=== PATIENT | male | born 1990 | race Caucasian/White ===

== ENCOUNTER 2016-07-16 10:41 | Inpatient (IN) | payer BC, OTHER ==
[~2016-07-16] VITALS: Ht 167.6 cm; Wt 56.7 kg
[2016-07-16] MEDS ORDERED: CLONIDINE HCL 0.1 MG TABLET PO PRN (22:15)
[2016-07-16] MEDS ORDERED: MAGNESIUM HYDROXIDE 30 ML LIQUID UDC PO PRN (22:15)
[2016-07-16] MEDS ORDERED: MIRALAX 17 GM POWD.PACK PO PRN (22:15)
[2016-07-16] MEDS ORDERED: LOPERAMIDE HCL 2 MG CAPSULE PO PRN ×2 (22:15)
[2016-07-16] MEDS ORDERED: ONDANSETRON 4 MG/2 ML VIAL IM PRN (22:15)
[2016-07-16] MEDS ORDERED: HYDROXYZINE PAMOATE 25 MG CAPSULE PO PRN (22:15)
[2016-07-16] MEDS ORDERED: MAG HYDROX/AL HYDROX/SIMETH 30 ML LIQUID UDC PO PRN (22:15)
[2016-07-16] MEDS ORDERED: BUPRENORPHINE HCL 2 MG TAB.SUBL SL PRN (22:15)
[2016-07-16] MEDS ORDERED: ACETAMINOPHEN 325 MG TABLET PO PRN (22:15)
[2016-07-16] MEDS ORDERED: ONDANSETRON ODT 4 MG TAB.RAPDIS SL PRN (22:15)
[2016-07-16] MEDS ORDERED: diphenhydrAMINE 50 MG CAPSULE PO PRN (22:15)
[2016-07-16 22:37] LABS: *AMPHETAMINE, URINE NEGATIVE (NEGATIVE); *BARBITURATE, URINE NEGATIVE (NEGATIVE); *CANNABINOID, URINE POSITIVE (NEGATIVE); *COCCAINE, URINE NEGATIVE (NEGATIVE); *OPIATE, URINE NEGATIVE (NEGATIVE); *PHENCYCLIDINE SCREEN,URINE NEGATIVE (NEGATIVE)
[2016-07-16] MEDS: DICYCLOMINE HCL 20 MG TABLET PO PRN (22:53)
--- NOTE | 2016-07-16 22:53 | NUR ---
PRN Subutex and PRN Bentyl: Pt complains of stomach cramps, diaphoresis, anxiety, myalgia, restlessness, 5/10 generalized muscle pain. Pupils 5mm. COWS is 16. Administered PRN Subutex 4mg for COWS 16 and PRN Bentyl for stomach cramps as ordered. Will continue to monitor.
[2016-07-16] MEDS ORDERED: BUPRENORPHINE HCL 2 MG TAB.SUBL SL ONE (22:58)
[2016-07-16] MEDS ORDERED: DICYCLOMINE HCL 20 MG TABLET ONE (22:58)
--- NOTE | 2016-07-16 23:00 | NUR ---
Admission Note: New admission is a 25 yo male on the [facility] floor at 22:45 on 07/16/16 accompanied by male METAL SASH SETTER. Skin check completed in presence of METAL SASH SETTER reveals scattered excoriations r/t methamphetamine-induced skin picking on bilateral arms and chest. VS upon admission: 112/76, 70, 97.8, 16, 100% Spo2 on RA. Pt reports current withdrawal symptoms: stomach cramps, restlessness, myalgia, diaphoresis, muscle aches, anxiety. PERRLA at 5mm. COWS is 16. Reported height is 5'6" and weight is 125 lbs. Pt reports allergy to cefaclor. Pt denies having a PCP. Pt reports the following substance use: 1) Opana (IV) 150-200 mg/day for 10 years at current rate, 14 years total. Last use 100mg 12 hours prior to admission. 2) Methamphetamine (IV) 2 gm/day for 1 years at current rate, 12 years total. Last use 1gm on 07/13/16 3) Xanax 2mg PO < weekly; use only when Opana not available. Unknown last use or amount. Pt reports that he has never been in detox or treatment before and denies any significant periods of sobriety. Pt reports that he smokes 20 cigarettes/day and has been smoking for 9 years. Written smoking cessation education provided. Pt verbalizes understanding. Pt reports medical hx of Hep-C + diagnosis in 2013, anxiety, surgical repair of right elbow. Pt denies sz hx. Pt denies taking any home medications. Pt is ambulatory with steady gait. Pt is noted to be anxious and guarded, with poor eye contact, unkempt appearance, and fasiculations. Lungs are CTA throughout, respirations are even and unlabored.; pt reports productive cough with clear mucus. Heart sounds regular. Bowel sounds active in all quadrants; pt reports last BM on 07/16/16. Abdomen is soft, non-distended. Pt denies current SI/HI or hx of SI/HI. Pt reports that currently lives with his parents, has four children, and that he is here to get sober for his family.
--- NOTE | 2016-07-16 23:55 | NUR ---
Reassessment: Pt reports relief of opiate withdrawal symptoms with PRN Subutex. COWS decreased from 16 to 5 one hour after administration. Pt denies stomach cramps at this time. PRN Bentyl effective. Will continue to monitor.
[2016-07-17] VITALS: BP 114/71
[2016-07-17 00:12] LABS: BASOPHILS # (AUTO) 0.1 K/uL (0.0-0.2); BASOPHILS % (AUTO) 1.6 % (0.0-2.0); EOSINOPHILS # (AUTO) 0.2 K/uL (0.0-0.7); HEMATOCRIT 36.9 % (40.0-50.0); HEMOGLOBIN 12.4 g/dL (14.0-18.0); LYMPHOCYTES # (AUTO) 3.8 K/uL (0.8-4.8); LYMPHOCYTES % (AUTO) 51.8 % (20.5-51.5); MEAN CORPUSCULAR HEMOGLOBIN 30.4 uug (27.0-31.0); MEAN CORPUSCULAR HGB CONC 34 g/dL (32.0-37.0); MEAN CORPUSCULAR VOLUME 90.5 fL (82.0-92.0); MONOCYTES # (AUTO) 0.7 K/uL (0.1-1.30); MONOCYTES % (AUTO) 9.9 % (0.0-11.0); NEUTROPHILS # (AUTO) 2.5 K/uL (1.8-8.9); NEUTROPHILS % (AUTO) 33.7 % (38.5-71.5); PLATELET COUNT (AUTO) 293 K/uL (150-450); RED BLOOD CELL COUNT(AUTO) 4.08 MIL/uL (4.70-6.10); RED CELL DISTRIBUTION WIDTH 13.8 % (11.5-14.5); WHITE BLOOD COUNT (AUTO) 7.3 K/uL (4.0-11.2)
[2016-07-17 00:24] LABS: ETHANOL < 3 MG/DL (0-0)
[2016-07-17 00:27] LABS: ALANINE AMINOTRANSFERASE 26 U/L (16-63); ALKALINE PHOSPHATASE 116 U/L (50-136); ASPARTATE AMINOTRANSFERASE 18 U/L (15-37); BILIRUBIN,TOTAL 0.2 mg/dL (0.2-1.0); CALCIUM 8.7 mg/dL (8.5-10.1); CARBON DIOXIDE 29 mmol/L (21-32); CHLORIDE 103 mmol/L (98-107); CREATININE 0.8 mg/dL (0.6-1.3); GFR 119 mL/min (>60); GLUCOSE 112 mg/dL (74-106); MAGNESIUM 1.8 mg/dL (1.8-2.4); SODIUM SERUM 137 mmol/L (136-145); THYROID STIMULATING HORMONE 0.405 mIU/mL (0.358-3.740); TOTAL PROTEIN, SERUM 6.7 g/dL (6.4-8.2); UREA NITROGEN, BLOOD 12 mg/dL (7-18)
[2016-07-17 00:32] LABS: HIV-1 p24 ANTIGEN NON REACTIVE (NONREACTIVE); HIV-1/2 ANTIBODY NON REACTIVE (NONREACTIVE)
--- NOTE | 2016-07-17 01:35 | NUR ---
Reassessment: Pt is in bed with eyes closed. Respirations are even and unlabored. No s/s of acute distress noted. PRN Maalox effective AEB pt's ability to rest. Will continue to monitor. Addendum: 07/18/16 at 0339 by MORALES CHRIS RN Disregard note. Wrong date entered.
[2016-07-17 04:00] VITALS: BP 105/62
--- NOTE | 2016-07-17 06:59 | NUR ---
End of Shift Note: Pt is a 25 yo male admitted last night for medically-supervised withdrawal from opiates. Pt reports using 150-200mg IV Opana daily for 10 years and 2gm IV methamphetamine daily for 1 year. Pt also reports intermittent use of Xanax to manage withdrawal when Opana is not available. Upon admission, pts COWS score was 16. PRN Subutex 4mg was administered, along with PRN Bentyl for stomach cramps, and COWS decreased to 5. Last COWS was 3 at 04:00. Pt reports PMHx of Hep-C +, anxiety, surgical repair of right elbow. Pt is a full code, on a regular diet, and reports allergy to cefaclor. V/S stable throughout shift. Total fluid intake this shift: 979 ml; output: urine x 1 and BM x 0. Pt currently in bed and slept 5 hours this shift. Endorsed f/u of wound photos and explanation of UDS (+) result of cannabinoids. Pt endorsed to day shift nurse.
--- NOTE | 2016-07-17 07:58 | NUR ---
BEGINNING OF SHIFT Patient endorsement report received from slot shift supervisor nurse, all pertinent information discussed. Patient is a 25 year old male, full code, with allergies to: cefaclor, regular diet. Patient with admitting Dx: opiate/methamphetamine dependence. Patient with past medical history of: hep c +, right elbow surgical repair 2006, and anxiety. Substance use history of: Opana iv 150-200mg daily for 10 years, methamphetamine 2 gram daily for one year, Xanax 2mg less weekly use, only when Opana not available. As per slot shift supervisor patient received PRN: Subutex and Bentyl as ordered and effective as per slot shift supervisor. Patient with last cow score of: 3. Patient received awake, alert and oriented x4, educated patient regarding plan of care for the day and medication regimen with good verbal understanding. safety measures in place, call light kept with in reach, will continue to monitor.
[2016-07-17 08:00] VITALS: BP 102/66
[2016-07-17] MEDS ORDERED: TUBERCULIN,PURIF.PROT.DERIV. 5 TU/0.1 ML TEST ID ONE (09:00)
[2016-07-17] MEDS: MULTIVITAMINS,THERAPEUTIC TABLET PO SCH (09:23)
[2016-07-17] MEDS: BUPRENORPHINE HCL 2 MG TAB.SUBL SL SCH ×4 (09:23→20:26)
[2016-07-17 12:55] VITALS: BP 110/68
--- NOTE | 2016-07-17 12:58 | NUR ---
UDS POSITIVE CANNABINOIDS Patient reports smoking marijuana 1 oz daily for 14 years, MD notified.
[2016-07-17] MEDS: DICYCLOMINE HCL 20 MG TABLET PO PRN ×2 (13:05→20:26)
--- NOTE | 2016-07-17 14:05 | NUR ---
PRN ZOFRAN/BENTYL Patient reports increase in nausea and reports stomach cramps, administered Zofran and Bentyl as ordered, will monitor effectiveness.
[2016-07-17] MEDS: GABAPENTIN 300 MG CAPSULE PO SCH ×2 (14:51→20:26)
[2016-07-17] MEDS ORDERED: diphenhydrAMINE 2% 28.4 GM CREAM TP PRN (15:00)
--- NOTE | 2016-07-17 15:05 | NUR ---
JENNIFER/BENTYL REASSESSMENT Patient reports medication effective at reducing stomach cramps and reports is no longer nauseous, will continue to monitor closely, no episodes of vomiting noted.
--- NOTE | 2016-07-17 15:55 | NUR ---
MD COMMUNICATION Notified Dr. Beltran of patients chin area, noted with redness, swollen and tenderness, as per patient he had an ingrown hair there. MD to start patient on ATB therapy, to begin 2100. Per MD patient to have I&D. Will continue to monitor, patient afebrile, picture taken and placed in chart.
[2016-07-17 16:20] VITALS: BP 110/62
--- NOTE | 2016-07-17 19:09 | NUR ---
END OF SHIFT Patient alert and oriented x4, vital signs were stable during shift, patient compliant with therapeutic plan of care. Patient with admitting Dx: opiate/bzo dependence. Patients taper completed, last dose administered this morning. 0900 assessment patient presented with: heart rate of 112, mild bone and joint aches, mild anxiety/mild agitation with cow score of: 4 and ciwa score of: 2; 1300 assessment patient presented with: heart rate of 89, mild anxiety with cow score of: 2 and ciwa score of: 1; 1700 presented with: heart rate of 86 and mild anxiety with cow score of: 2 and ciwa score of: 1. During shift, supplemented patient with magnesium and k phos as per MD orders. Patient is scheduled to be discharged tomorrow. Patient noted self motivated towards sobriety. Patient encouraged to attend group therapies/sessions to learn new coping skills to prevent relapse, noted attending and participating, denies SI/HI. Patient encouraged adequate PO fluid intake as tolerated. Safety measures in place. will continue to monitor. safety measures in place. Addendum: 07/17/16 at 1924 by GERMAINE SKINNER LVN clarification note above for incorrect patient. please disregard
--- NOTE | 2016-07-17 19:22 | NUR ---
END OF SHIFT Patient alert and oriented x4, vital signs were stable during shift, patient compliant with therapeutic plan of care. Patient with admitting Dx: opiate/methamphetamine dependence. Patient started on a 6 day Subutex taper as ordered first day started today, well tolerated, no ASE noted. 0900 assessment patient presented with: observable moist, moderate dilated pupils, yawning, stomach cramps, irritable and anxiety with cow score of: 8. 1300 assessment patient presented with: observable moist, moderate dilated pupils, stomach cramps, nausea, and mild anxiety with cow score of: 8; 1700 assessment patient presented with: c/o chills, dilated pupils, mild bone and joint aches, stomach cramps and anxiety with cow score of: 7. Patient to begin ATB therapy for abscess on chin, as per MD orders, during shift patient was also seen and examined by care specialist with new orders. During shift, administered Zofran as ordered and Bentyl as ordered, medications were effective. Patient encouraged to attend group therapies/sessions to learn new coping skills to prevent relapse, noted attending and participating, denies SI/HI. Patient encouraged adequate PO fluid intake as tolerated. Safety measures in place. will continue to monitor. safety measures in place.
--- NOTE | 2016-07-17 19:45 | NUR ---
Start of Shift Note: Report received from day shift nurse. Pt is a 25 yo male admitted on 07/16/16 for medically-supervised withdrawal from opiates. Pt reports using 150-200mg IV Opana daily for 10 years and 2gm IV methamphetamine daily for 1 year. Pt also reports intermittent use of Xanax to manage withdrawal when Opana is not available. Pt is on day 1 of a 6-day Subutex taper. Pt received with last day shift COWS=7. Pt reports PMHx of Hep-C +, anxiety, surgical repair of right elbow. Pt is a full code, on a regular diet, and reports allergy to cefaclor. New order for Bactrim and warm compress 20min QID for wound on chin. Will swab wound for culture. Pt is currently in bed in position, c/o severe stomach cramps. Pt also reports anxiety and myalgia. Will administer PRN Bentyl with taper medications. All needs attended and met. All safety precautions are in place. Will continue to monitor.
[2016-07-17 20:00] VITALS: BP 113/62
--- NOTE | 2016-07-17 20:15 | NUR ---
Wound Culture and Warm Compress: Specimen for wound culture collected from wound on chin. Pt tolerated procedure well. Warm, moist compress applied to area as per MD order. Pt verbalized understanding of treatment plan for wound care.
--- NOTE | 2016-07-17 20:25 | NUR ---
PRN Bentyl: Pt c/o severe stomach cramps. Administered PRN Bentyl as ordered. Will continue to monitor.
[2016-07-17] MEDS: SULFAMETH/TRIMETH 800/160 MG TABLET PO SCH (20:26)
--- NOTE | 2016-07-17 21:25 | NUR ---
Reassessment: Pt states that his pain from stomach cramping has decreased from 8/10 pain to 3/10. PRN Bentyl effective. Will continue to monitor.
[2016-07-18] VITALS: BP 102/60
--- NOTE | 2016-07-18 00:30 | NUR ---
PRN Maalox: Pt c/o dyspepsia and heartburn. Administered PRN Maalox as ordered. Will continue to monitor.
--- NOTE | 2016-07-18 01:03 | NUR ---
PRN Miralax: Pt reports abdominal discomfort and cramping. Pt reports one small, hard BM two days ago. Bowel sounds active right quadrants, hypoactive left quadrants. Administered PRN Miralax as ordered.
--- NOTE | 2016-07-18 01:35 | NUR ---
Reassessment: Pt is in bed with eyes closed. Respirations are even and unlabored. No s/s of acute distress noted. PRN Maalox effective AEB pt's ability to rest. Will continue to monitor.
[2016-07-18 04:00] VITALS: BP 110/61
--- NOTE | 2016-07-18 04:00 | NUR ---
COWS/CIWA Deferred: COWS and CIWA deferred for sleep. V/S: 97.6, 61, 12, 97%, 110/61. Addendum: 07/18/16 at 0524 by MORALES CHRIS RN Amended: Links added. Addendum: 07/18/16 at 0658 by MORALES CHRIS RN Error: No CIWA ordered for this patient. Disregard CIWA reference.
--- NOTE | 2016-07-18 06:57 | NUR ---
End of Shift Note: Pt is a 25 yo male admitted on 07/16/16 for medically-supervised withdrawal from opiates. Pt reports PMHx of Hep-C +, anxiety, surgical repair of right elbow. Pt is a full code, on a regular diet, and reports allergy to cefaclor. Pt reports using 150-200mg IV Opana daily for 10 years and 2gm IV methamphetamine daily for 1 year. Pt also reports intermittent use of Xanax to manage withdrawal when Opana is not available. Pt is to start the second day of a 6-day Subutex taper. Taper medications effectively managed s/s of withdrawal, and COWS score decreased from 8 to 5 after medication administration. PRN Bentyl was given for stomach cramps and PRN Maalox was given for dyspepsia. PRN Miralax was given for constipation but pt did not have a BM this shift; re-assessment endorsed to day shift. Wound culture of abscess on chin collected this shift and warm/moist compress treatment order changed to QID for 20 min. V/S stable throughout shift. Total fluid intake this shift: 250 ml; output: urine x 1 and BM x 0. Pt currently in bed and slept 9 hours this shift. Bed is in low position and locked, side rails up x2, call light within reach. All needs attended and met. Pt endorsed to day shift nurse.
--- NOTE | 2016-07-18 07:45 | NUR ---
BEGINNING OF SHIFT Patient endorsement report received from table games shift manager nurse, all pertinent information discussed. Patient is a 25 year old male, full code, with allergies to: cefaclor, regular diet. Patient with admitting Dx: opiate/methamphetamine dependence. Patient with past medical history of: hep c +, right elbow surgical repair 2006, and anxiety. Substance use history of: Opana iv 150-200mg daily for 10 years, methamphetamine 2 gram daily for one year, Xanax 2mg less weekly use, only when Opana not available. continues on 6 day Subutex taper as ordered and is currently on 2 day Subutex. As per table games shift manager patient received PRN: Miralax, Bentyl and Maalox, will reassess if patient has bowel movement. Patient continues on Bactrim ATB therapy as ordered for abscess on chin area, also will continue to apply warm compress as ordered. Patient with last cow score of: 5. Patient received awake, alert and oriented x4, educated patient regarding plan of care for the day and medication regimen with good verbal understanding. safety measures in place, call light kept with in reach, will continue to monitor.
[2016-07-18 08:18] VITALS: BP 114/69
--- NOTE | 2016-07-18 08:43 | NUR ---
PRN BENTYL/ROBAXIN Patient c/o stomach cramps and muscle aches, pain level 7/10. Administered Bentyl and Robaxin as ordered, will monitor effectiveness.
[2016-07-18] MEDS: GABAPENTIN 300 MG CAPSULE PO SCH ×4 (08:46→20:57)
[2016-07-18] MEDS: DICYCLOMINE HCL 20 MG TABLET PO PRN (08:46)
[2016-07-18] MEDS: MULTIVITAMINS,THERAPEUTIC TABLET PO SCH (08:46)
[2016-07-18] MEDS: METHOCARBAMOL 750 MG TABLET PO PRN ×2 (08:46→20:57)
[2016-07-18] MEDS: BUPRENORPHINE HCL 2 MG TAB.SUBL SL SCH ×3 (08:46→20:57)
[2016-07-18] MEDS: SULFAMETH/TRIMETH 800/160 MG TABLET PO SCH ×2 (08:46→20:57)
--- NOTE | 2016-07-18 09:46 | NUR ---
ALAINA/JOSE REASSESSMENT/ MD COMMUNICATION Patient reports medication with some relief, encouraged patient adequate PO fluid intake as tolerated. Dr. Huerta was notified of patients current status, per MD will input orders. Will continue to monitor closely.
[2016-07-18 14:10] VITALS: BP 107/60
[2016-07-18 17:22] VITALS: BP 102/65
--- NOTE | 2016-07-18 19:16 | NUR ---
END OF SHIFT Patient alert and oriented x4, vital signs were stable during shift, patient compliant with therapeutic plan of care. Patient with admitting Dx: opiate/methamphetamine dependence. Patient started on a 6 day Subutex taper as ordered and is currently on day 2 of taper, well tolerated, no ASE noted. 0900 assessment patient presented with: c/o chills, mild bone and joint aches, moist eyes, stomach cramps, yawning, mild anxiety, unable to sit still with cow score of: 11; 1300 assessment patient presented with: c/o chills, mild bone and joint aches, moist eyes, stomach cramps, mild anxiety, difficulty sitting still with cow score of: 6; 1700: patient presented with:c/o chills, mild bone and joint aches, moist eyes, stomach cramps, mild anxiety, difficulty sitting still with cow score of: 6. Patient continues ATB therapy for abscess on chin, as per MD orders, During shift, administered Bentyl as ordered, and Robaxin as ordered medications were effective. Patient encouraged to attend group therapies/sessions to learn new coping skills to prevent relapse, noted attending and participating, denies SI/HI. Patient encouraged adequate PO fluid intake as tolerated. Safety measures in place. will continue to monitor. safety measures in place.
--- NOTE | 2016-07-18 19:30 | NUR ---
START OF SHIFT NOTE: Patient is a 25 y/o male admitted on 07/16/16 for Opiate dependence. Patient reported using Opana IV 150-200mg daily, Meth IV 2 gm daily, & Xanax 2mg weekly. Patient has Hepatitis C, Right elbow surgical repair (2006) Anxiety. Patient is on a regular diet with allergies to Cefaclor. Full Code status. Fall precaution noted. Pateint is on a 6-day Subutex taper and tolerating well. Patient has scattered scratch mejía on his bilateral arams and abscess on his chin. Warm compress done. Patient's last COWS 6. Bentyl and Robaxin was given during day shift. Patient is alert & oriented x4. No shortness of breath noted. Respiration even & unlabored. Abdomen soft & non-distended. Denies stomach cramps and nausea. Patient complains of sweating, 7/10 body aches, & anxiety. Slight bilateral hand tremors noted. Patient denies SI/HI. Safety precautions are in place. Bed locked in lowest position. Both side rails up. Call light within pt's reach. Will continue to monitor patient.
[2016-07-18 20:00] VITALS: BP 105/64
--- NOTE | 2016-07-18 20:57 | NUR ---
PRN Robaxin Patient complains of 7/10 body aches. Pt appears restless and anxious with facial grimacing noted. PRN Robaxin given as ordered. Will monitor for effectiveness of medication.
--- NOTE | 2016-07-18 21:57 | NUR ---
PRN Reassessment Patient verbalized relief from body aches. Pt appears calm and less anxious and restless noted. Will continue to monitor patient.
[2016-07-19 04:00] VITALS: BP 109/57
--- NOTE | 2016-07-19 07:18 | NUR ---
END OF SHIFT NOTE: Patient is a 25 y/o male admitted on 07/16/16 for Opiate dependence. Patient reported using Opana IV 150-200mg daily, Meth IV 2 gm daily, & Xanax 2mg weekly. Patient has Hepatitis C, Right elbow surgical repair (2006) Anxiety. Patient is on a regular diet with allergies to Cefaclor. Full Code status. Fall precaution noted. Pateint is on a 6-day Subutex taper and tolerating well. Patient has scattered scratch mejía on his bilateral arms and abscess on his chin. Warm compress done. Patient had an uneventful night. Pt remained stable. Last COWS 7. Pt was given PRN Robaxin for body aches. Pt reported that medication is effective in controlling his withdrawal symptoms. Vitals WNL. Pt is compliant with treatment plan. Pt still asleep at this time. No shortness of breath noted. Respiration even & unlabored. All needs attended & met. Pt slept for a total of 8 hours. Pt consumed 296ml of fluids. Voided 3x with no bowel movement noted. safety precautions are in place. Will endorse pt to day shift nurse.
--- NOTE | 2016-07-19 07:34 | NUR ---
BEGINNING OF SHIFT Patient endorsement report received from production shift supervisor nurse, all pertinent information discussed. Patient is a 25 year old male, full code, with allergies to: cefaclor, regular diet. Patient with admitting Dx: opiate/methamphetamine dependence. Patient with past medical history of: hep c +, right elbow surgical repair 2006, and anxiety. Substance use history of: Opana iv 150-200mg daily for 10 years, methamphetamine 2 gram daily for one year, Xanax 2mg less weekly use, only when Opana not available. continues on 6 day Subutex taper as ordered and is currently on 3 day Subutex. As per production shift supervisor patient received PRN: robaxin, medication effective as per production shift supervisor. Patient continues on Bactrim ATB therapy as ordered for abscess on chin area, also will continue to apply warm compress as ordered. Patient with last cow score of: 7. Patient received awake, alert and oriented x4, educated patient regarding plan of care for the day and medication regimen with good verbal understanding. safety measures in place, call light kept with in reach, will continue to monitor.
[2016-07-19 08:32] VITALS: BP 106/60
[2016-07-19] MEDS: SULFAMETH/TRIMETH 800/160 MG TABLET PO SCH ×2 (08:33→20:36)
[2016-07-19] MEDS: MULTIVITAMINS,THERAPEUTIC TABLET PO SCH (08:33)
[2016-07-19] MEDS: GABAPENTIN 300 MG CAPSULE PO SCH ×3 (08:33→20:36)
[2016-07-19] MEDS: DICYCLOMINE HCL 20 MG TABLET PO PRN (08:34)
--- NOTE | 2016-07-19 08:34 | NUR ---
PRN BENTYL Patient reports increase stomach cramps, administered Bentyl as ordered, will monitor effectiveness. safety measures in place.
[2016-07-19] MEDS ORDERED: BUPRENORPHINE HCL 2 MG TAB.SUBL SL SCH (09:00)
--- NOTE | 2016-07-19 11:35 | NUR ---
PRN VISTARIL Patient reported feeling increase in anxiety, provided with non pharmacological interventions with no relief, administered Vistaril as ordered, will monitor effectiveness.
--- NOTE | 2016-07-19 11:35 | NUR ---
BENTYL REASSESSMENT Patient reports decrease in stomach cramps, no c/o pain/discomfort. will continue to monitor. safety measures in place Addendum: 07/19/16 at 1329 by GERMAINE SKINNER LVN clarification: medication as reassessed one hour post administration.
--- NOTE | 2016-07-19 12:35 | NUR ---
VISTARIL REASSESSMENT Patient reports medication with relief, feels less anxious. encouraged patient to attend group therapies/sessions to learn new coping skills, to prevent relapse.
[2016-07-19] MEDS: METHOCARBAMOL 750 MG TABLET PO PRN (13:57)
--- NOTE | 2016-07-19 13:57 | NUR ---
PRN ROBAXIN Patient reports muscle aches 09/13, provided with non pharmacological interventions with no relief, administered PRN: Robaxin as ordered. will monitor effectiveness.
[2016-07-19 13:59] VITALS: BP 120/65
[2016-07-19] MEDS: BUPRENORPHINE HCL 2 MG TAB.SUBL SL SCH ×2 (14:01→20:36)
[2016-07-19] MEDS ORDERED: MAGNESIUM CITRATE 296 ML BOTTLE PO ONE (14:15)
--- NOTE | 2016-07-19 14:15 | NUR ---
MD COMMUNICATION Dr. Huerta was notified of patients complains of abdominal cramps, pet patient verbalized has not had a bowel movement in 3 days. no N/V noted. per MD new orders for magnesium citrate one bottle times one for constipation. MD unable to input order, orders was read back and verified by MD, and carried out. Will administer medication as ordered and monitor effectiveness.
--- NOTE | 2016-07-19 14:57 | NUR ---
ROBAXIN REASSESSMENT Patient reports medication effective, decrease in muscle aches, current pain level 2/10, tolerable as per patient. will continue to monitor.
--- NOTE | 2016-07-19 15:00 | NUR ---
PRN MAGNESIUM CITRATE Patient was administered one bottle of magnesium citrate will monitor effectiveness of medication, patient encouraged adequate PO fluid intake as tolerated. will continue to monitor closely.
[2016-07-19 17:29] LABS: HCV AB >11.0 s/co ratio (0.0-0.9); HEPATITIS B CORE AB, IgM Negative (Negative); HEPATITIS B SURFACE AG Positive (Negative)
[2016-07-19 17:41] VITALS: BP 97/61
--- NOTE | 2016-07-19 18:39 | NUR ---
MAGNESIUM CITRATE Medication effective patient had one large bowel movement, will continue to monitor.
--- NOTE | 2016-07-19 18:59 | NUR ---
END OF SHIFT Patient alert and oriented x4, vital signs were stable during shift, patient compliant with therapeutic plan of care. Patient with admitting Dx: opiate/methamphetamine dependence. Patient started on a 6 day Subutex taper as ordered and is currently on day 3 of taper, well tolerated, no ASE noted. 0900 assessment patient presented: flushed, mild bone and joint aches, moist eyes, stomach cramps, tremors, and mild anxiety with cow score of: 8; 1300 assessment patient presented with: c/o chills, mild bone and joint aches, stomach cramps, tremors that can be felt but not seen, and mild anxiety with cow score of: 5; 1700 assessment patient presented with: c/o chills, mild bone and joint aches, stomach cramps, tremors that can be felt but not seen, and mild anxiety with cow score of: 5, detox medication effective at reducing withdrawal symptoms. Patient continues ATB therapy for abscess on chin, as per MD orders, also continues with warm compress to chin area as ordered, well tolerated. During shift, administered Bentyl as ordered, and Robaxin as ordered and Vistaril as ordered medications were effective. Patient encouraged to attend group therapies/sessions to learn new coping skills to prevent relapse, noted attending and participating, denies SI/HI. Patient encouraged adequate PO fluid intake as tolerated. Safety measures in place. will continue to monitor. safety measures in place.
--- NOTE | 2016-07-19 19:05 | NUR ---
Start of Shift Patient Received. Patient is in his room, sleeping. Breathing even and non labored. No signs of pain or discomfort noted. Patient is a 25 year old male, admitted on 07/16/16 for Opiate Dependence, under the care of Dr. Beltran. Patient is currently receiving a 6 day Subutex taper. Patient verbalizes allergy to Cefaclor, wishes to be full code, following a regular diet, placed on fall precautions. Skin is noted with multiple scattered scratches to bilateral arms and chest. Patient is also noted with a facial abscess located on the chin with orders to placed a warm compress to area. Patient was given PRN Bentyl, Robaxin, and Vistaril with Medication noted to be effective. Patient was also given PRN Mag Cit. Will continue to monitor for effectiveness of medication. MRSA swap resulted and noted to be negative. At 1750 last COWS noted COWS 5. All needs attended to promptly. Will continue plan of care as ordered.
[2016-07-19 20:02] VITALS: BP 129/74
[2016-07-19] MEDS: IBUPROFEN 600 MG TABLET PO PRN (20:36)
--- NOTE | 2016-07-19 20:40 | NUR ---
PRN Medication Administration Patient verbalizing pain of 7/10 due to generalized body aches. PRN Motrin administered with routine medications. Tolerated well. Will continue to monitor for effectiveness.
--- NOTE | 2016-07-19 22:00 | NUR ---
PRN Medication Reassessment Patient noted in bed, awake, alert and verbally responsive. Patient was able to verbalize "I feel better now" PRN Motrin noted to be effective. Will continue to monitor.
[2016-07-20 00:25] VITALS: BP 101/55
[2016-07-20 04:17] VITALS: BP 108/65
--- NOTE | 2016-07-20 06:55 | NUR ---
End of Shift Patient is in bed sleeping. Breathing even and non labored. No signs of pain or discomfort noted. Patient is a 25 year old male, admitted on 07/16/16 for Opiate Dependence, under the care of Dr. Beltran. Patient is currently receiving a 6 day Subutex taper. Patient verbalizes allergy to Cefaclor, wishes to be full code, following a regular diet, placed on fall precautions. Skin is noted with multiple scattered scratches to bilateral arms and chest. Patient is also noted with a facial abscess located on the chin with orders to place a warm compress to area. Patient was given PRN Motrin for body aches with medication noted to be effective. At 2100 COWS noted to be 6. All needs attended to promptly. Will endorse to continue plan of care as ordered.
--- NOTE | 2016-07-20 07:45 | NUR ---
START OF SHIFT NOTE Received report from night nurse, 25 year old male, admitted on 07/16/16 for Opiate Dependence. Pt with 6 day Subutex taper. Allergic to Cefaclor, Full code, Regular diet, on fall precautions. pt has multiple scattered scratches to bilateral arms and chest, facial abscess located on the chin with orders to placed a warm compress to area. Pt received PRN Motrin effective per night nurse, slept for 6 hours, Last COWS-6. MRSA swab negative. Received pt in his room resting in stable condition, responsive to verbal and tactile stimuli. Breathing normal no SOB noted. Safety measures in place, call light within reach. Will cont to monitor.
[2016-07-20 08:00] VITALS: BP 107/63
[2016-07-20] MEDS: SULFAMETH/TRIMETH 800/160 MG TABLET PO SCH (08:20)
[2016-07-20] MEDS: IBUPROFEN 600 MG TABLET PO PRN (08:20)
--- NOTE | 2016-07-20 08:20 | NUR ---
PRN MED Pt c/o of general body pain 07/14, non pharmacological intervention ineffective. Administered PRN Motrin 600mg 1tab Po as ordered. Will cont to monitor and reassess the pt.
[2016-07-20] MEDS: BUPRENORPHINE HCL 2 MG TAB.SUBL SL SCH ×3 (08:21→20:29)
[2016-07-20] MEDS: MULTIVITAMINS,THERAPEUTIC TABLET PO SCH (08:21)
[2016-07-20] MEDS: GABAPENTIN 300 MG CAPSULE PO SCH ×3 (08:21→20:25)
--- NOTE | 2016-07-20 09:00 | NUR ---
WARM COMPRESS Warm compression provided to chin as ordered. Skin intact to the site. Will cont to monitor.
--- NOTE | 2016-07-20 09:20 | NUR ---
REASSESSMENT Pt verbalized medication effective pain decreased to 1/10.
[2016-07-20] MEDS ORDERED: MIRALAX 17 GM POWD.PACK PO PRN ×2 (10:45→12:07)
[2016-07-20] MEDS: SENNOSIDES 1 TABLET PO SCH ×2 (11:15→20:25)
--- NOTE | 2016-07-20 11:15 | NUR ---
NEW ORDER Pt c/o of constipation and seen by Dr. Huerta with new order of Senokot 2 tab Po bid. Orders entered by MD. Administered medication as ordered.
[2016-07-20 12:00] VITALS: BP 131/62
--- NOTE | 2016-07-20 13:00 | NUR ---
WARM COMPRESS Warm compression provided to chin as ordered. Skin intact to the site. Pt denies any pain to the site. Will cont to monitor.
[2016-07-20 16:00] VITALS: BP 115/60
--- NOTE | 2016-07-20 17:00 | NUR ---
WARM COMPRESS Warm compression provided to chin as ordered. Skin intact to the site. Pt is compliant with care. Will cont to monitor.
--- NOTE | 2016-07-20 18:12 | NUR ---
CLINICAL PHARMACY NOTE:VANCOMYCIN DOSING Request for vancomycin dosing on 25 y/o male 5'6" 125lbs for cellulitis of chin. Temp 98.7 labs from 07/16 BUN 12, Scr 0.8, WBC 7.3 Start vancomycin 1gm ivpb q10h estimated trough 16. trough level ordered prior to 12noon dose on 07/22. Will continue to monitor
--- NOTE | 2016-07-20 18:53 | NUR ---
END OF SHIFT NOTE Gave report to night nurse, 25 year old male, admitted on 07/16/16 for Opiate Dependence. Pt with 6 day Subutex taper. Allergic to Cefaclor, Full code, Regular diet, on fall precautions. pt has multiple scattered scratches to bilateral arms and chest, facial abscess located on the chin with orders to placed a warm compress to area. During shift pt received PRN Motrin/ warm compression. Pt was seen by nurse practitioner with new order for IV Vancomycin start at 2000 and d/c Po ATB. Pt attended groups. Last COWS-3. Pt's total intake 1520ml, voided x4. Vital signs remained stable. Safety measures in place, Call light within reach. Will endorse pt to night nurse.
[2016-07-20 20:00] VITALS: BP 125/63
--- NOTE | 2016-07-20 20:00 | NUR ---
Start of Shift Pt is a 25 year old male admitted on 07/16/2016 for Opiate Dependence, placed on 6 day Subutex taper. Pt reported using Opana 150-200mg/daily, Methamphetamine IV 2gm/daily and Xanax PO 2mg - weekly use, only when Opana not available. Pt is allergic to Cefaclor, fall precautions - no history of seizures, regular diet and full code. PMH: Anxiety, Hep C + and Right elbow surgical repair 2006. Upon assessment, pt reports anxiety, muscle/joint aches, sweat noted, runny nose, tears in eyes, respirations unlabored, denies n/v/d, skin noted to be clammy/face flushed. Warm compressions provided to chin QID - abscess site. Safety measures in place, call light within reach, side rails up x2, bed locked and in low position. Will continue to monitor.
[2016-07-20] MEDS: DOCUSATE SODIUM 100 MG CAPSULE PO SCH (20:26)
[2016-07-20] MEDS: VANCOMYCIN IV 1 G in PREMIXED 0 EACH IV SCH (21:11)
--- NOTE | 2016-07-20 21:11 | NUR ---
Vancomycin IV IV 22 gauge started in Right AC, intact, flushing well, patent. Started Vancomycin IV running 200ml at 133.333mls/hr. Safety measures in place, Will continue to monitor.
[2016-07-21] VITALS: BP 98/51
--- NOTE | 2016-07-21 | NUR ---
Vital Signs BP 98/51, pulse 57, respirations 16, SpO2 98%, temp 97.6, no reports of pain 0/10. COWS assessment deferred d/t pt sleeping, to assess while pt is awake as ordered. Safety measures in place, Will continue to monitor.
[2016-07-21 04:00] VITALS: BP 115/71
--- NOTE | 2016-07-21 04:00 | NUR ---
Vital Signs BP 115/71, pulse 61, respirations 12, SpO2 99%, temp 97.8, no reports of pain 0/10. COWS assessment deferred d/t pt sleeping, to assess while pt is awake as ordered. Safety measures in place, Will continue to monitor.
[2016-07-21] MEDS: VANCOMYCIN IV 1 G in PREMIXED 0 EACH IV SCH ×2 (06:19→16:19)
--- NOTE | 2016-07-21 06:19 | NUR ---
Vancomycin IV New Bag started -Vancomycin IV running 200ml at 133.333mls/hr. IV 22 gauge in Right AC, intact, flushing well, patent. Safety measures in place, Will continue to monitor.
--- NOTE | 2016-07-21 07:00 | NUR ---
End of Shift Pt is a 25 year old male admitted on 07/16/2016 for Opiate Dependence, placed on 6 day Subutex taper. Pt reported using Opana 150-200mg/daily, Methamphetamine IV 2gm/daily and Xanax PO 2mg - weekly use, only when Opana not available. Pt is allergic to Cefaclor, fall precautions - no history of seizures, regular diet and full code. PMH: Anxiety, Hep C + and Right elbow surgical repair 2006. During shift, pt is presented with anxiety, muscle/joint aches, sweat, runny nose, tears in eyes - scheduled taper medications administered, COWS 5. IV 22 gauge started in Right AC, intact, flushing well, patent. Vancomycin IV running 200ml at 133.333mls/hr. Warm compressions provided to chin QID - abscess site. Pt continues on Subutex taper. No PRN medications administered. Pt slept for 6 hours, intake of 1050 ml PO and voids x2. Safety measures in place, call light within reach, side rails up x2, bed locked and in low position. Endorsed to day shift nurse.
--- NOTE | 2016-07-21 07:18 | NUR ---
Start Of Shift Report received form lieutenant shift supervisor. Pt is a 25 year old male admitted on 07/16/2016 for Opiate Dependence, medically supervised withdrawal. Pt is full code regular diet allergic to Cefaclor on fall and seizure precautions. Pt placed on 6 day Subutex taper. Pt reported no history of seizures. PMH: Anxiety, Hep C + and Right elbow surgical repair 2006. Last COWS was a 5 @1999. Pt has a 22 gauge IV located on his Right AC, intact, flushing well, patent. Vancomycin 200ml IV running at 133.333mls/hr. Warm compressions must be provided to chin QID due to his abscess site. No PRN medications administered last night. Pt slept for a total of 6 hours. Safety measures in place, call light within reach, side rails up x2, bed locked and in low position. Endorsed to day shift nurse.
[2016-07-21 08:00] VITALS: BP 112/69
--- NOTE | 2016-07-21 09:13 | NUR ---
Warm Compress Warm compression provided to chin as ordered. Skin intact to the site. Pt is compliant with care. Will cont to monitor.
[2016-07-21] MEDS: BUPRENORPHINE HCL 2 MG TAB.SUBL SL SCH ×2 (09:14→21:10)
[2016-07-21] MEDS: MULTIVITAMINS,THERAPEUTIC TABLET PO SCH (09:14)
[2016-07-21] MEDS: GABAPENTIN 300 MG CAPSULE PO SCH ×3 (09:14→21:09)
[2016-07-21] MEDS: DOCUSATE SODIUM 100 MG CAPSULE PO SCH ×2 (09:14→21:10)
[2016-07-21] MEDS: DICYCLOMINE HCL 20 MG TABLET PO PRN (10:30)
--- NOTE | 2016-07-21 10:30 | NUR ---
PRN MEDICATION Pt c/o abdominal cramping and pain rating it 4/10 requested something for relief, non-pharmacological techniques interventions provided x3 and were not effective. PRN Bentyl 20 mg administered PO, educated pt about s/e of medication and when to contact nurse. all needs met, all safety measures in place, will continue to monitor.
--- NOTE | 2016-07-21 10:39 | NUR ---
PRN MEDICATION Pt c/o abdominal cramping requested something for relief, non-pharmacological techniques interventions provided x3 and were not effective. PRN Bentyl 20mg administered PO, educated pt about s/e of medication and when to contact nurse. all needs met, all safety measures in place, will continue to monitor.
--- NOTE | 2016-07-21 11:30 | NUR ---
PRN REASSESSMENT Upon reassessment medication noted to be effective pt reported a decrease in pain to 1/10. Instructed pt to contact nurse if pain reoccurred. All needs met, all safety measures in place will continue to monitor.
[2016-07-21 12:00] VITALS: BP 133/70
--- NOTE | 2016-07-21 13:16 | NUR ---
Warm Compress Warm compression provided to chin as ordered. Skin intact to the site. Pt is compliant with care. Will cont to monitor.
--- NOTE | 2016-07-21 14:57 | NUR ---
CLINICAL PHARMACY NOTE:VANCOMYCIN DOSING Subjective: To continue vancomycin dosing on 25 y/o male 5'6" 125lbs for cellulitis of chin. Objective: BUN 12 (07/16) Scr 0.8 (07/16) WBC 7.3 (07/16) Temp 97.8 Assessment/Plan: Continued vancomycin 1gm ivpb q10h estimated trough 16. Trough level ordered prior to 12noon dose on 07/22. Will check for renal function when labs available and adjust regimen if needed. Will continue to follow.
[2016-07-21 16:00] VITALS: BP 126/81
[2016-07-21] MEDS ORDERED: LIDOCAINE HCL 1% 20 ML VIAL IJ STA (18:32)
--- NOTE | 2016-07-21 18:50 | NUR ---
Dr. Dickson performed an I&D on pt, prior to procedure pt was educated about procedure the benefits and consequences of the procedure and what to expect, Pt alert and oriented x4 verbalized understanding and signed consent, procedure performed without complications there was minimal drainage, pt tolerated well. Culture was sent to lab. no further orders given.
--- NOTE | 2016-07-21 19:16 | NUR ---
End of Shift Report given to rn shift mgr. Pt is a 25 year old male , Opiate Dependence, medically supervised withdrawal. Pt is full code regular diet allergic to Cefaclor on fall and seizure precautions. Pt continues 6 day Subutex taper tolerating well. Pt reported no history of seizures. PMH: Anxiety, Hep C + and Right elbow surgical repair 2006. Last COWS was a 5 @1600. Pt has a 22 gauge IV located on his Right AC, intact, flushing well, patent. Vancomycin 200ml IV running at 133.333mls/hr. Warm compressions provided today QID. Pt received PRN Bentyl 20mg, medication was effective. Pt had an I&D performed today to his abscess on his chin, procedure went well, patient tolerated well, all consent forms explained and signed. Pt encouraged to participate in groups and activities. currently pt is alert and oriented denies any N/V/D, his fluid intake today was 1419ml he had 4 voids and no bowel movement.
[2016-07-21 20:00] VITALS: BP 118/73
--- NOTE | 2016-07-21 20:00 | NUR ---
Start of Shift Pt is a 25 year old male admitted on 07/16/2016 for Opiate Dependence, placed on 6 day Subutex taper. Pt reported using Opana 150-200mg/daily, Methamphetamine IV 2gm/daily and Xanax PO 2mg - weekly use, only when Opana not available. Pt is allergic to Cefaclor, fall precautions - no history of seizures, regular diet and full code. PMH: Anxiety, Hep C + and Right elbow surgical repair 2006. Upon assessment, pt presents with anxiety, muscle/joint aches, noted with moderate sweat, respirations unlabored, denies n/v/d, skin noted to be clammy/face flushed. Warm compressions provided to chin QID d/t abscess site. Pt had an I&D performed today during day shift to his abscess on his chin, patient tolerated well. Pt has a 22 gauge IV located on his right AC, intact, flushing well, patent. Vancomycin 200ml IV running at 133.333mls/hr. Safety measures in place, call light within reach, side rails up x2, bed locked and in low position. Will continue to monitor.
[2016-07-21] MEDS ORDERED: SENNOSIDES 1 TABLET PO PRN (20:30)
[2016-07-21] MEDS: DICYCLOMINE HCL 20 MG TABLET PO SCH (21:10)
[2016-07-22] VITALS: BP 99/68
--- NOTE | 2016-07-22 | NUR ---
Vital Signs BP 99/68, pulse 62, respirations 16, SpO2 97%, temp 98.1, no reports of pain 0/10. COWS assessment deferred d/t pt sleeping, to assess while pt is awake as ordered. Safety measures in place, Will continue to monitor.
--- NOTE | 2016-07-22 02:00 | NUR ---
Vancomycin IV Vancomycin IV 200ml hung at 133.333mls/hr. IV site intact, patent and flushing well. Safety measures in place, Will continue to monitor.
[2016-07-22] MEDS: VANCOMYCIN IV 1 G in PREMIXED 0 EACH IV SCH ×3 (02:04→21:08)
[2016-07-22 04:00] VITALS: BP 116/63
--- NOTE | 2016-07-22 04:00 | NUR ---
Vital Signs BP 116/63, pulse 57, respirations 16, SpO2 98%, temp 97.9, no reports of pain 0/10. COWS assessment deferred d/t pt sleeping, to assess while pt is awake as ordered. Safety measures in place, Will continue to monitor.
[2016-07-22 06:44] LABS: BASOPHILS # (AUTO) 0.1 K/uL (0.0-8.0); BASOPHILS % (AUTO) 0.9 % (0.0-2.0); EOSINOPHILS # (AUTO) 0.3 K/uL (0.0-0.7); EOSINOPHILS % (AUTO) 3.9 % (0.0-7.0); HEMATOCRIT 39.9 % (36.7-47.1); HEMOGLOBIN 13.2 g/dL (12.5-16.3); LYMPHOCYTES # (AUTO) 4.1 K/uL (20.0-40.0); LYMPHOCYTES % (AUTO) 53.7 % (20.5-51.5); MEAN CORPUSCULAR HEMOGLOBIN 30.3 uug (23.8-33.4); MEAN CORPUSCULAR HGB CONC 33 g/dL (32.5-36.3); MEAN CORPUSCULAR VOLUME 91.8 fL (73.0-96.2); MONOCYTES # (AUTO) 0.8 K/uL (2.0-10.0); MONOCYTES % (AUTO) 10.4 % (0.0-11.0); NEUTROPHILS # (AUTO) 2.4 K/uL (1.8-8.9); NEUTROPHILS % (AUTO) 31.1 % (38.5-71.5); PLATELET COUNT (AUTO) 259 K/uL (152-348); RED BLOOD CELL COUNT(AUTO) 4.35 MIL/uL (4.06-5.63); RED CELL DISTRIBUTION WIDTH 14.3 % (12.1-16.2); WHITE BLOOD COUNT (AUTO) 7.7 K/uL (3.6-10.2)
--- NOTE | 2016-07-22 07:00 | NUR ---
End of Shift Pt is a 25 year old male admitted on 07/16/2016 for Opiate Dependence, placed on 6 day Subutex taper. Pt reported using Opana 150-200mg/daily, Methamphetamine IV 2gm/daily and Xanax PO 2mg - weekly use, only when Opana not available. Pt is allergic to Cefaclor, fall precautions - no history of seizures, regular diet and full code. PMH: Anxiety, Hep C + and Right elbow surgical repair 2006. During shift, pt presented with anxiety, muscle/joint aches, sweaty/clammy skin noted scheduled taper medications administered, COWS 6. No PRN medications administered during shift. Pt has a 22 gauge IV located on his right AC, intact, flushing well, patent. At 0200, Vancomycin 200ml IV hung at 133.333mls/hr. Warm compressions provided to chin QID d/t abscess site. Pt slept for 4 hours, intake of 1065 ml PO and voids x4. Safety measures in place, call light within reach, side rails up x2, bed locked and in low position. Endorsed to day shift nurse.
--- NOTE | 2016-07-22 07:01 | NUR ---
Start of Shift Endorsement received from nightshift nurse. Pt is a 25 y/o male admitted for meth and opiate dependence. Pt is on a 6 day Subutex taper. Pt is tolerating the taper, moderately withdrawing at this time AEB COWS 6. Pt has a 22g saline lock in his Right AC. Pt did not receive any PRN medications. Pt reports sleeping 4 hours. VS WNL, Full Code. . PT is alert and oriented x4. Pt is in STABLE condition at this time. Remains compliant with medication and diet regimen. All needs have been met, All safety measures in place per hospital policy. Bed in lowest position, side rails up x2, call-light within reach. Will continue to monitor
[2016-07-22 07:08] LABS: IRON, SERUM 97 ug/dL (50-175)
[2016-07-22 07:26] LABS: ALANINE AMINOTRANSFERASE 21 U/L (16-63); ALKALINE PHOSPHATASE 112 U/L (50-136); ASPARTATE AMINOTRANSFERASE 12 U/L (15-37); BILIRUBIN,TOTAL 0.2 mg/dL (0.2-1.0); CALCIUM 8.8 mg/dL (8.5-10.1); CHLORIDE 105 mmol/L (98-107); CREATININE 0.9 mg/dL (0.6-1.3); GFR 104 mL/min (>60); GLUCOSE 82 mg/dL (74-106); MAGNESIUM 1.6 mg/dL (1.8-2.4); PHOSPHOROUS 4.7 mg/dL (2.5-4.9); POTASSIUM 4.3 mmol/L (3.5-5.1); SODIUM SERUM 141 mmol/L (136-145); TOTAL PROTEIN, SERUM 6.6 g/dL (6.4-8.2); UREA NITROGEN, BLOOD 11 mg/dL (7-18)
[2016-07-22 07:35] LABS: CARBON DIOXIDE 33 mmol/L (21-32)
[2016-07-22 07:36] LABS: BILIRUBIN,DIRECT < 0.1 mg/dL (0.0-0.2)
[2016-07-22 08:00] VITALS: BP 109/65
[2016-07-22] MEDS ORDERED: BUPRENORPHINE HCL 2 MG TAB.SUBL SL SCH (09:00)
[2016-07-22] MEDS: GABAPENTIN 300 MG CAPSULE PO SCH ×3 (09:06→21:16)
[2016-07-22] MEDS: DOCUSATE SODIUM 100 MG CAPSULE PO SCH ×2 (09:06→21:16)
[2016-07-22] MEDS: DICYCLOMINE HCL 20 MG TABLET PO SCH ×3 (09:06→21:16)
[2016-07-22] MEDS: MULTIVITAMINS,THERAPEUTIC TABLET PO SCH (09:06)
[2016-07-22] MEDS ORDERED: MAGNESIUM OXIDE 400 MG TABLET PO ONE (10:00)
[2016-07-22 12:00] VITALS: BP 115/71
--- NOTE | 2016-07-22 14:04 | NUR ---
CLINICAL PHARMACY NOTE:VANCOMYCIN DOSING Subjective: To continue vancomycin dosing on 25 y/o male 5'6" 125lbs for cellulitis of chin with abscess(S/P I&D) Objective: BUN 11 Scr 0.9 WBC 7.7 Temp 98.1 Vancomycin trough 7.0(07/22 at 1140) Ht 5' 6" Wt 125 lbs (measured on scale) Assessment/Plan: Since Vancomycin trough is under the therapeutic range, will change dose to 1 gram IV every 7 hrs (first dose given today at 1230) and draw trough by 4th dose(not ordered yet) for expected trough around 14. Will monitor renal function closely to adjust the dose if needed. Will follow daily.
[2016-07-22 16:00] VITALS: BP 111/54
[2016-07-22] MEDS ORDERED: DICY20TA28 PO (17:58)
[2016-07-22] MEDS ORDERED: Ibuprofen PO (17:58)
[2016-07-22] MEDS ORDERED: HYDR-3895 PO (17:58)
[2016-07-22] MEDS ORDERED: Gabapentin PO (17:58)
[2016-07-22] MEDS ORDERED: SULF1TAB48 PO (17:58)
[2016-07-22] MEDS ORDERED: DIPH50CA37 PO (17:58)
[2016-07-22] MEDS ORDERED: METH-33 PO (17:58)
[2016-07-22] MEDS ORDERED: Docusate Sodium PO (17:58)
[2016-07-22] MEDS ORDERED: MAGNESIUM CITRATE 296 ML BOTTLE PO ONE (18:15)
[2016-07-22 18:33] LABS: *AMPHETAMINE, URINE NEGATIVE (NEGATIVE); *BARBITURATE, URINE NEGATIVE (NEGATIVE); *CANNABINOID, URINE NEGATIVE (NEGATIVE); *COCCAINE, URINE NEGATIVE (NEGATIVE); *OPIATE, URINE NEGATIVE (NEGATIVE); *PHENCYCLIDINE SCREEN,URINE NEGATIVE (NEGATIVE)
--- NOTE | 2016-07-22 19:10 | NUR ---
End of Shift Endorsement given to nightshift nurse. Pt is a 25 y/o male admitted for meth and opiate dependence. Pt is on a 6 day Subutex taper. Pt is tolerating the taper, moderately withdrawing at this time AEB COWS 4. Pt has a 22g saline lock in his Right AC, pt has received 1 dose of vancomycin, pt is scheduled to receive another dose at 1930. Pt received PRN Magnesium Citrate for reported constipation. Pt participated in groups and activities. Pt has been scheduled for discharge on 07/23/16, all documentation has been completed.Pt has been completed on deep breathing techniques to help relieve mild to moderate anxiety. VS WNL, Full Code. . PT is alert and oriented x4. Pt is in STABLE condition at this time. Remains compliant with medication and diet regimen. All needs have been met, All safety measures in place per hospital policy. Bed in lowest position, side rails up x2, call-light within reach. Will continue to monitor
--- NOTE | 2016-07-22 19:15 | NUR ---
START OF SHIFT Received 25 year old male patient admitted on 07/16/16 for Xanax, Opana IV and Methamphetamine IV dependency. Pt is full code with allergy to cefaclor. Pt reports PMHx of Hep C +, anxiety and right elbow surgical repair. Pt reports using Opana (IV) 150 mg-200 mg daily for 10 years. Last dose was 100 mg on 07/16/16. Xanax PO 2 mg daily uses only when Opana not available. And Methamphetamine IV 2 gram/day for1 year. Last dose was 1 gram on 07/13/16. Pt was placed on a 6 day Subutex taper started on 07/17/16 and tolerated well. Per endorsement, pt is scheduled to be DC tomorrow 07/23/16. Pt with 22 gauge IV on right AC patent and flushing well. Pt receiving Vancomycin 1 gram every 7 hrs. Pt is alert and oriented x4, breathing is even and unlabored, safety measures in place. Will continue to monitor.
[2016-07-22 20:00] VITALS: BP 107/50
[2016-07-22] MEDS ORDERED: FLEET ENEMA 133 ML BOTTLE RC PRN (23:30)
[2016-07-23] VITALS: BP 112/59
[2016-07-23] MEDS: VANCOMYCIN IV 1 G in PREMIXED 0 EACH IV SCH ×2 (03:05→09:30)
[2016-07-23 04:00] VITALS: BP 113/72
--- NOTE | 2016-07-23 07:04 | NUR ---
END OF SHIFT Pt is alert and oriented x4 he remained stable, and had uneventful night. He did not receive PRN medications during shift. Pt slept a total of 5 hrs, Intake:1065 mL Void:1 BM:0, COWS:3 at 0400. Warm compress was administered as ordered. Pt received his Vanco IV 133 mL/hr at 2100 and 0300. Pt tolerated well. IV site on right AC 22 gauge patent and flushing well. At 0400 pt complained of stomach pain related to laxatives he received during AM shift. Offered pt PRN laxatives, pt refused. Risks/benefits explained x3, pt still refused. Encouraged fluids, pt verbalized understanding. Breathing is even and unlabored, respirations 16. Pt is safe with bed locked in lowest position, respirations 16, breathing is even and unlabored. Will endorse to oncoming shift.
--- NOTE | 2016-07-23 07:34 | NUR ---
START OF SHIFT Received report from table games shift manager nurse. 25 year old male patient admitted on 07/16/16 for opiate, benzo and methamphetamine dependence. Pt has completed ordered 6 day Subutex and is medically cleared for discharge, pt is aware and states he is ready. Pt is A/O x4, allergic to Cefaclor. Pt has medical history of Hep C, anxiety, right elbow surgical repair. Pt has abscess on chin that is being treated with IV vancomycin and warm compress. Most recent COWS 3 at 0400. Pt reports constipation but is refusing ordered laxatives, pt encouraged to drink fluids and ambulate. Pt slept for 5 hours throughout night. V/S remain WNL. Urine was collected for d/c. Pt remains safe and seizure free throughout hospitalization. All needs met at this time, safety precautions are in place, will continue to monitor.
[2016-07-23 08:14] VITALS: BP 114/63
[2016-07-23 08:17] LABS: HEPATITIS B CORE AB, IgM Negative (Negative); HEPATITIS B CORE AB, TOTAL Positive (Negative)
[2016-07-23] MEDS: DICYCLOMINE HCL 20 MG TABLET PO SCH (09:00)
[2016-07-23] MEDS: DOCUSATE SODIUM 100 MG CAPSULE PO SCH (09:00)
[2016-07-23] MEDS: GABAPENTIN 300 MG CAPSULE PO SCH (09:00)
[2016-07-23] MEDS: MULTIVITAMINS,THERAPEUTIC TABLET PO SCH (09:00)
--- NOTE | 2016-07-23 09:00 | NUR ---
IV REMOVED Per MD orders, IV removed, no s/s of infiltration, no redness noted. Pt is scheduled for d/c this morning.
--- NOTE | 2016-07-23 09:19 | NUR ---
0900 MEDICATIONS REFUSED Pt refused a.m. medications, education provided.
[2016-07-24 04:06] LABS: HEPATITIS Be ANTIGEN Positive (Negative)
== END 2016-07-23 09:45 | disposition other institution (70) | DRG 895 ==
LOC: SRC 21:41
PROVIDERS: ADMIT Internal Medicine; ATTEND Internal Medicine
PROC: HZ2ZZZZ Detoxification Services for Substance Abuse Treatment (ICD-10-PCS; principal; 2016-07-16)
PROC: HZ31ZZZ Individual Counseling for Substance Abuse Treatment, Behavioral (ICD-10-PCS; 2016-07-18)
PROC: HZ41ZZZ Group Counseling for Substance Abuse Treatment, Behavioral (ICD-10-PCS; 2016-07-19)
PROC: 0H91XZZ Drainage of Face Skin, External Approach (ICD-10-PCS; 2016-07-21)
DX: F11.23 Opioid dependence with withdrawal (principal); L02.01 Cutaneous abscess of face; L03.211 Cellulitis of face; F15.10 Other stimulant abuse, uncomplicated; F12.10 Cannabis abuse, uncomplicated; F17.210 Nicotine dependence, cigarettes, uncomplicated; L73.9 Follicular disorder, unspecified; K59.03 Drug induced constipation; E88.09 Other disorders of plasma-protein metabolism, not elsewhere classified; D63.8 Anemia in other chronic diseases classified elsewhere; B19.20 Unspecified viral hepatitis C without hepatic coma; F41.9 Anxiety disorder, unspecified
CPT/HCPCS: 36415; 70030-TC; 80307; 80349; 82746; 83550; 83735; 84100; 84443; 85025; 86580; 86592; 86704; 86705; 86803; 87070; 87340; 87350; 87521; 87806; A4663; C1758; G6040-TC; J3370; J3490; Q0162